=== PATIENT | female | born 1980 | race African-American/Black ===

== ENCOUNTER 2017-03-11 15:37 | Emergency (ER) | payer OTHER ==
[~2017-03-11] VITALS: Ht 157.5 cm; Wt 63.5 kg
--- NOTE | ~2017-03-11 | EKG ---
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
[~2017-03-11 15:37] MED LIST: BACTRIM DS TAB1 EACH PO; CILOXAN3.5 GM OP; ERYTHROMYCIN E3.5 G1 OPHTHALMIC; NORCO 5-325 TA1 EACH PO
[2017-03-11] MEDS ORDERED: LAMICTAL 25 MG25 M1 PO (15:43)
[2017-03-11 16:34] LABS: URINE BILIRUBIN NEGATIVE (Negative); URINE BLOOD 3+ (Negative); URINE CLARITY CLOUDY; URINE COLOR RED; URINE GLUCOSE-RANDOM* NEGATIVE (Negative); URINE KETONES NEGATIVE (Negative); URINE LEUKOCYTES NEGATIVE (Negative); URINE NITRITE NEGATIVE (Negative); URINE PROTEIN (DIPSTICK) 1+ (Negative); URINE SPECIFIC GRAVITY >= 1.030 (1.005-1.035); URINE UROBILINOGEN 0.2 E.U./dl (0.2-1.0)
[2017-03-11 16:36] LABS: URINE RBC >20 Many /HPF (0-2)
[2017-03-11 16:37] LABS: BACTERIA 1-9 Few /HPF (None Seen); CASTS None Seen /LPF (None Seen); CRYSTALS None Seen /LPF (None Seen); SQUAMOUS None Seen /LPF (0-3); URINE WBC 0-5 Rare /HPF (0-5)
[2017-03-11 16:45] LABS: ANION GAP 8 mmol/L (7-16); BUN 11 mg/dL (7-18); CALCIUM 9.3 mg/dL (8.5-10.1); CHLORIDE 103 mmol/L (98-107); CO2 25 mmol/L (21-32); CREATININE 1.1 mg/dL (0.6-1.0); GLUCOSE 104 mg/dL (74-106); POTASSIUM 4.1 mmol/L (3.5-5.1); SODIUM 136 mmol/L (136-145)
[2017-03-11 16:54] LABS: ALBUMIN 3.6 g/dL (3.4-5.0); SGOT 22 U/L (15-37); SGPT 22 U/L (30-65); TOTAL BILIRUBIN 0.5 mg/dL (<0.1-1.0); TOTAL PROTEIN 7.5 g/dL (6.4-8.2); TROPONIN-I < 0.04 ng/mL (<0.06)
[2017-03-11 18:09] LABS: ABSOLUTE NEUTROPHILS 3.2 thou/uL (1.4-8.2); BASOPHILS 0.4 % (0.0-2.0); EOSINOPHILS 0.5 % (0.0-3.0); HEMATOCRIT 34.4 % (37.0-47.0); HEMOGLOBIN 11.2 gm/dL (12.0-15.0); LYMPHOCYTES 38.7 % (24.0-44.0); MCH 23.1 pg (26.0-34.0); MCHC 32.6 g/dL (28.0-37.0); MCV 70.9 fL (80.0-100.0); PLATELET COUNT 314 thou/uL (150-400); POLYS 52.4 % (36.0-66.0); RBC 4.85 mil/uL (4.20-5.00); RDW 14.8 % (10.5-14.5)
[2017-03-11] MEDS ORDERED: KEFLEX500 M1 PO (18:31)
[2017-03-11] MEDS ORDERED: MECLIZINE HCL25 MG PO (18:31)
[2017-03-19] MEDS ORDERED: MOBIC7.5 MG PO (15:02)
[2017-03-19] MEDS ORDERED: BACTRIM DS TAB1 EACH PO (15:02)
== END 2017-03-11 19:01 | disposition home or self-care (01) ==
LOC: ER 15:37
PROVIDERS: Physician Assistant
DX: N39.0 Urinary tract infection, site not specified (principal); T42.6X5A Adverse effect of other antiepileptic and sedative-hypnotic drugs, initial encounter; Y92.9 Unspecified place or not applicable

== ENCOUNTER → 2017-03-19 | Emergency (ER) | payer OTHER ==
[~2017-03-19] VITALS: Ht 160 cm; Wt 65.8 kg
[~2017-03-19] MED LIST changes: +KEFLEX500 M1 PO; +LAMICTAL 25 MG25 M1 PO; +MECLIZINE HCL25 MG PO; +MOBIC7.5 MG PO; +PREDNISONE 20 M20 MG PO
== END ==
LOC: ER 14:50
DX: L73.9 Follicular disorder, unspecified (principal); F31.9 Bipolar disorder, unspecified

== ENCOUNTER 2017-06-04 07:35 | Emergency (ER) | payer OTHER ==
[~2017-06-04] VITALS: Ht 157.5 cm; Wt 68.0 kg
[~2017-06-04 07:35] MED LIST changes: -PREDNISONE 20 M20 MG PO
[2017-06-04 07:48] VITALS: BP 125/86
[2017-06-04] MEDS ORDERED: PREDNISONE 20 M20 MG PO (08:26)
== END 2017-06-04 08:35 | disposition home or self-care (01) ==
LOC: ER 07:35
DX: J20.9 Acute bronchitis, unspecified (principal)

== ENCOUNTER 2020-09-23 17:44 | Emergency (ER) | payer OTHER ==
[~2020-09-23] VITALS: Ht 157.5 cm; Wt 66.7 kg
[~2020-09-23 17:44] MED LIST changes: +PREDNISONE 20 M20 MG PO
[2020-09-23 19:11] LABS: ABSOLUTE NEUTROPHILS 2.7 thou/uL (1.4-8.2); EOSINOPHILS 0.5 % (0.0-3.0); HEMATOCRIT 32.6 % (37.0-47.0); HEMOGLOBIN 10.4 gm/dL (12.0-15.0); LYMPHOCYTES 36.6 % (24.0-44.0); MCH 21.4 pg (26.0-34.0); MCHC 31.9 g/dL (28.0-37.0); MCV 67.1 fL (80.0-100.0); MONOCYTES 10.8 % (1.0-8.0); PLATELET COUNT 348 thou/uL (150-400); POLYS 51.1 % (36.0-66.0); RBC 4.85 mil/uL (4.20-5.00); RDW 17.5 % (10.5-14.5); WBC 5.4 thou/uL (4.0-11.0)
[2020-09-23 19:22] LABS: CALCIUM 8.7 mg/dL (8.5-10.1); POTASSIUM 3.4 mmol/L (3.5-5.1)
[2020-09-23 19:28] LABS: ALBUMIN 3.6 g/dL (3.4-5.0); TOTAL BILIRUBIN 0.8 mg/dL (0.2-1.0); TOTAL PROTEIN 7.7 g/dL (6.4-8.2)
[2020-09-23 20:23] LABS: URINE BILIRUBIN NEGATIVE (Negative); URINE BLOOD TRACE (Negative); URINE CLARITY CLEAR; URINE COLOR YELLOW; URINE GLUCOSE-RANDOM* NEGATIVE (Negative); URINE KETONES NEGATIVE (Negative); URINE NITRITE-REFLEX NEGATIVE (Negative); URINE PROTEIN (DIPSTICK) NEGATIVE (Negative); URINE SPECIFIC GRAVITY <= 1.005 (1.005-1.035); URINE UROBILINOGEN 0.2 E.U./dl (0.2-1.0)
[2020-09-23 20:33] LABS: URINE LEUKOCYTES-REFLEX 1+ (Negative)
[2020-09-23 20:37] LABS: CASTS None Seen /LPF (None Seen); SQUAMOUS 0-3 Few /LPF (0-3)
[2020-09-23 20:38] LABS: BACTERIA-REFLEX 1-9 Few /HPF (None Seen); CRYSTALS None Seen /LPF (None Seen); URINE RBC 1-2 Rare /HPF (NONE SEEN); URINE WBC-REFLEX 6-15 Few /HPF (0-5)
[2020-09-23 21:23] LABS: ANISOCYTOSIS 1+; MICROCYTES 2+
[2020-09-23 21:25] LABS: HYPOCHROMASIA 2+
[2020-09-23] MEDS ORDERED: CEFPODOXIME PR200 M1 PO (22:39)
[2020-09-23 23:01] VITALS: BP 112/79
== END 2020-09-23 23:04 | disposition home or self-care (01) ==
LOC: ER 17:44
PROVIDERS: Emergency Medicine
DX: N39.0 Urinary tract infection, site not specified (principal); F41.9 Anxiety disorder, unspecified; F32.9 Major depressive disorder, single episode, unspecified; Z79.899 Other long term (current) drug therapy; Z98.890 Other specified postprocedural states

== ENCOUNTER 2020-12-11 23:17 | Emergency (ER) | payer OTHER ==
[~2020-12-11] VITALS: Ht 157.5 cm; Wt 65.8 kg
[~2020-12-11 23:17] MED LIST changes: +CEFPODOXIME PR200 M1 PO
[2020-12-11] MEDS ORDERED: FLUTICASONE PR TOP (23:29)
[2020-12-11] MEDS ORDERED: CLINDAMYCIN PH1 EACH TOP (23:30)
[2020-12-11] MEDS ORDERED: KETOCONAZOLE120 ML TOP (23:30)
[2020-12-12] MEDS ORDERED: BACTRIM DS TAB1 EACH PO (00:25)
[2020-12-12 01:29] VITALS: BP 128/81
== END 2020-12-12 01:31 | disposition home or self-care (01) ==
LOC: ER 23:17
DX: L02.31 Cutaneous abscess of buttock (principal); F41.9 Anxiety disorder, unspecified; F32.9 Major depressive disorder, single episode, unspecified; Z98.890 Other specified postprocedural states; Z79.899 Other long term (current) drug therapy

== ENCOUNTER 2021-02-18 11:43 | Emergency (ER) | payer OTHER ==
[~2021-02-18] VITALS: Ht 157.5 cm; Wt 64.0 kg
[~2021-02-18 11:43] MED LIST changes: +CLINDAMYCIN PH1 EACH TOP; +FLUTICASONE PR TOP; +KETOCONAZOLE120 ML TOP
[2021-02-18] MEDS ORDERED: NOHOMEMEDICATIONS (12:27)
[2021-02-18] MEDS ORDERED: PREDNISONE 20 M20 MG PO (13:31)
[2021-02-18] MEDS ORDERED: VENTOLIN HFA 1818 GM INH (13:31)
[2021-02-18 14:26] VITALS: BP 116/70
== END 2021-02-18 14:26 | disposition home or self-care (01) ==
LOC: ER 11:43
DX: U07.1 COVID-19 (principal); F41.9 Anxiety disorder, unspecified; F31.9 Bipolar disorder, unspecified